=== PATIENT | male | born 1970 | race Caucasian/White ===

== ENCOUNTER → 2019-01-17 12:17 | Outpatient (CLI) | payer BC, SELFPAY ==
--- NOTE | 2019-01-17 | CA_ITS ---
APPROVED REPORT Exam: Pharmacologic Technologist: Vanessa Vasques Ht: 5 ft 5 in Wt: 150 lbs BSA: 1.75 m2 HR: 50 bpm BP: 94/54 mmHg Indications: CAD Medical History Medications: Omeprazole,,,,, Isosorbide,,,,, Aspirin,,,,, Metformin,,,,, ClonAZEPAM,,,,, CloPIdogrel,,,,, Nitro,,,,, Stress Test Details Test: LEXISCAN HR Resting HR: 50 bpm Max Heart Rate (APMHR): 174 bpm Max HR Achieved: 76 bpm Target HR (85% APMHR): 147 bpm % of APMHR: 43 Recovery HR: 58 bpm BP Resting BP: 94.0/54.0 mmHg Max BP: 102.0/61.0 mmHg Recovery BP: 90.0/60.0 mmHg ECG Clinical Exercise duration: 04:00 min Highest Stage Achieved: Stress ECG Conclusion Resting ECG: Sinus bradycardia, right axis deviation, ST abnormality inferiorly. Symptoms: Shortness of air, stomach discomfort, malaise. No chest pain. Arrhythmias/Ectopy: None ST-T Changes: Exaggeration of baseline ST abnormalities in the inferior leads. Conclusion: Unremarkable Lexiscan stress. Myoview images reported separately. Test Summary REST . . . . . . . Resting REST 03:42 . . 50 . 94/ 54 . . Stage 1 . . . . . . . Myoview Injected Stage 1 01:00 . . 67 . . . . Stage 2 01:00 . . 72 . 102/ 61 . . Stage 3 01:00 . . 67 . 89/ 53 . . Stage 4 01:00 . . 63 . 97/ 59 . Stop exercise at 04:00 RECOVERY 01:00 . . 69 . 99/ 57 . . RECOVERY 02:00 . . 61 . 99/ 57 . . RECOVERY 03:00 . . 64 . 100/ 57 . . RECOVERY 04:00 . . 58 . 90/ 60 . . RECOVERY 05:00 . . 58 . 90/ 60 . . RECOVERY 05:24 . . 55 . 90/ 60 . . Electronically signed by : Moe Gonzalez, 01/23/2019 15:01:47
--- NOTE | 2019-01-17 12:26 | NM_ITS ---
APPROVED REPORT Exam: Nuclear Stress Test Indication: CAD(3 STINTS), CABG(3 BY PASSES), HTN, D.M., HYPERLIPIDEMIA, TOB USE, FM. HX., C.P., SOB, SYNCOPE Stress Tech: Vanessa FRANKEL Tech:Sandhya Alba, ARRLexi RT (R)(N)(M) Ht: 5 ft 5 in Wt: 150 lbs HR: 50 bpm BP: 94/54 mmHg BSA: 1.75 m2 BMI: 24.9 History: CAD(3 STINTS), CABG(3 BY PASSES), HTN, D.M., HYPERLIPIDEMIA, TOB USE, FM. HX., C.P., SOB, SYNCOPE Procedure: Patient received a 0.4 mg of intravenous Lexiscan, resting heart rate 50 bpm, resting blood pressure 94/54 mmHg, with Lexiscan maximum heart rate achived was 73 bpm which is % of the maximum predicted heart rate and blood pressure was 102/61 mmHg. With Lexiscan, patient denied any complaint of chest pain. Cardiac Stress and Resting SPECT Images: Cardiac Stress and Resting SPECT images were obtained using technetium 99m Myoview 30.2 mCi stress and 10.17 mCi at rest. EF 56% No fixed or reversible defects Conclusion: EF normal at 56% No evidence of ischemia or infarction Electronically signed by : Sharan Chirinos MD 01/19/2019 09:40:03
--- NOTE | 2019-01-17 15:16 | HMH.ITSHM ---
Current Home Medications as stated by this patient Frankie Castro or circulation representative. []OMEPRAZOLE NITRO METFORMIN ISOSORBIDE CLOPIDOGREL CLONAZEPAM ASPIRIN
== END ==
PROVIDERS: Visit Provider Internal Medicine Cardiovascular Disease
DX: Z01.810 Encounter for preprocedural cardiovascular examination (principal); I25.10 Atherosclerotic heart disease of native coronary artery without angina pectoris; E78.2 Mixed hyperlipidemia; I10 Essential (primary) hypertension; Z95.1 Presence of aortocoronary bypass graft
CPT/HCPCS: 78452; 93017; 93306; A9502; J2785